=== PATIENT | female | born 1965 ===

== ENCOUNTER 2024-06-01 06:17 | Day surgery (SDC) | payer BC, SELFPAY | END 2024-06-01 10:46 | disposition home or self-care (01) | LOC: GI 06:17 | PROVIDERS: ATTENDING PHYSICIAN Internal Medicine Gastroenterology | DX: R19.4 Change in bowel habit (principal); K57.30 Diverticulosis of large intestine without perforation or abscess without bleeding; K62.89 Other specified diseases of anus and rectum; K63.5 Polyp of colon; D23.5 Other benign neoplasm of skin of trunk; Z83.719 Family history of colon polyps, unspecified | CPT/HCPCS: 45385; 45380; 88305; 88342 ==